=== PATIENT | female | born 1990 | race African-American/Black ===

== ENCOUNTER 2021-04-15 13:50 | Emergency (ER) | payer SELFPAY ==
[~2021-04-15] VITALS: Ht 167.6 cm; Wt 175.0 kg
[2021-04-15] MEDS ORDERED: KETOROLAC 60 MG/2 ML VIAL. IM ONE (14:30)
[2021-04-15 14:32] VITALS: BP 138/78
--- NOTE | 2021-04-15 15:01 | RAD ---
XR EXAM OF ANKLE_RIGHT 3VIEWS DATE: 04/15/2021 2:32 PM INDICATION: Reason: lateral ankle swelling and tenderness / Spl. Instructions: / History: COMPARISON: None FINDINGS: Bones: There is no evidence of acute fracture or dislocation. Os trigonum is present. Extensive swell ing around the ankle more pronounced over the medial malleolus of uncertain etiology. Joints: The ank le mortise is congruent with marginal osteophytes.. No widening of the distal tibiofibular syndesmosi s. Miscellaneous: None. IMPRESSION: Extensive swelling about the ankle more pronounced over the medial malleolus with no underlying acute osseous injury. Electronically signed by: Kaushal Salazar DO (04/15/2021 2:58 PM) [id number]
--- NOTE | 2021-04-15 15:09 | PHYS DOC ---
Past History Past Surgical History: No Surgical History (MIGUEL ÁNGEL AGRAWAL) Alcohol Use: None (MIGUEL ÁNGEL AGRAWAL) General Adult EDM: Chief Complaint: ANKLE PROBLEM HPI: HPI: Patient is a 30 year old female who presents with right ankle pain. Patient states that on Thanksgiving (4 days ago), she thinks she "rolled" her ankle. She has been able to walk since that time, although painfully. She presents today to obtain a work note, as she had to call in secondary to her pain. She has no other complaints at this time. (MIGUEL ÁNGEL AGRAWAL) Review of Systems: Review of Systems: Constitutional: Denies fever or chills Eyes: Denies change in visual acuity HENT: Denies nasal congestion or sore throat Respiratory: Denies cough or shortness of breath Cardiovascular: Denies chest pain or edema GI: Denies abdominal pain, nausea, vomiting, bloody stools or diarrhea : Denies dysuria or hematuria Musculoskeletal: See HPI Integument: Denies rash or other skin lesions Neurologic: Denies headache, focal weakness or sensory changes (MIGUEL ÁNGEL AGRAWAL) Current Medications: Current Meds: Current Medications Medications (Trade) Dose Ordered Sig/Jason Start Time Stop Time Status Last Admin Dose Admin Ketorolac Tromethamine (Toradol Im) 60 mg 1X ONCE 04/15/21 14:30 04/15/21 14:40 DC 04/15/21 14:30 60 MG (MIGUEL ÁNGEL AGRAWAL) Allergies: Allergies: Allergies Coded Allergies Type Severity Reaction Last Updated Verified No Known Drug Allergies 04/15/21 No (MIGUEL ÁNGEL AGRAWAL) Physical Exam: PE: Constitutional: Morbidly obese, no acute distress, non-toxic appearance. Cardiovascular: Heart rate regular rhythm, no obvious murmur. Lungs & Thorax: Bilateral breath sounds clear to auscultation. Skin: Warm, dry, no erythema, no rash, no abrasion, no laceration. Extremities: Right ankle has medial and lateral malleoli point tenderness with swelling medial>lateral, no cyanosis, no clubbing, ROM intact, neurovascular intact bilaterally. (MIGUEL ÁNGEL AGRAWAL) Current Patient Data: Vital Signs: Vital Signs Date Time Temp Pulse Resp B/P (MAP) Pulse Ox O2 Delivery O2 Flow Rate FiO2 04/15/21 14:32 97.2 70 16 138/78 (98) 98 Room Air (MIGUEL ÁNGEL AGRAWAL) Radiology/Procedures: Radiology/Procedures: PROCEDURE: ANKLE RIGHT 3V XR EXAM OF ANKLE_RIGHT 3VIEWS DATE: 04/15/2021 2:32 PM INDICATION: Reason: lateral ankle swelling and tenderness / Spl. Instructions: / History: COMPARISON: None FINDINGS: Bones: There is no evidence of acute fracture or dislocation. Os trigonum is present. Extensive swelling around the ankle more pronounced over the medial malleolus of uncertain etiology. Joints: The ankle mortise is congruent with marginal osteophytes.. No widening of the distal tibiofibular syndesmosis. Miscellaneous: None. IMPRESSION: Extensive swelling about the ankle more pronounced over the medial malleolus with no underlying acute osseous injury. Electronically signed by: Kaushal Salazar DO (04/15/2021 2:58 PM) [id number] (MIGUEL ÁNGEL AGRAWAL) Heart Score: C/O Chest Pain: No (MIGUEL ÁNGEL AGRAWAL) Course & Med Decision Making: Course & Med Decision Making Pertinent Labs and Imaging studies reviewed. (See chart for details) Patient was able to ambulate directly after injury and 4 days since that time. However, with point tenderness over the malleoli, x-ray images obtained. No obvious fracture or dislocation seen on plain films. Patient placed in stirrup splint and discharged home with contact information for orthopedic follow-up. Work note was provided for today and tomorrow. Patient understands and is agreeable to discharge plan. (MIGUEL ÁNGEL AGRAWAL) Course & Med Decision Making I was the Attending physician on the above date of service of this patient. This patient was evaluated, examined, treated, and dispositioned from the emergency department by the mid-level practitioner. Although I was working at the time , no assistance was requested. Electronically signed, Ivory Monroy DO (IVORY MONROY DO) Ninfa Disclaimer: Ninfa Disclaimer: This electronic medical record was generated, in whole or in part, using a voice recognition dictation system. (MIGUEL ÁNGEL AGRAWAL) Departure Departure: Impression: Primary Impression: Sprain of unspecified ligament of right ankle, initial encounter Disposition: HOME / SELF CARE / HOMELESS Condition: STABLE Referrals: PCP,NO (PCP) EUGENIA MANDUJANO Jr. DO Patient Instructions: Ankle Sprain, [id number], RICE - Routine Care for Injuries, [id number] MIGUEL ÁNGEL AGRAWAL Apr 15, 2021 15:09 IVORY MONROY DO Apr 16, 2021 06:23
== END 2021-04-15 15:19 | disposition home or self-care (01) ==
LOC: ER 13:50
DX: S93.401A Sprain of unspecified ligament of right ankle, initial encounter (principal); X50.9XXA Other and unspecified overexertion or strenuous movements or postures, initial encounter; Y93.89 Activity, other specified; Y92.89 Other specified places as the place of occurrence of the external cause; Y99.8 Other external cause status
CPT/HCPCS: 29515; 73610; 96372; 99283; J1885